=== PATIENT | female | born 2000 | race Caucasian/White ===

== ENCOUNTER 2019-07-22 20:00 | Inpatient (IN) ==
[2019-07-22] MEDS ORDERED: Lidocaine 1% 10 MG/ML - 20 ML VIAL SUBCUT PRN ×2 (20:31→20:50)
[2019-07-22] MEDS ORDERED: LIDOCAINE HCL 2 % 10 ML JELLY URO-JECT TOPICAL PRN ×2 (20:31→20:50)
[2019-07-22] MEDS ORDERED: OXYTOCIN 10 UNIT/1 ML IM PRN ×2 (20:31→20:50)
[2019-07-22] MEDS ORDERED: BUTORPHANOL TARTRATE 2 MG/1 ML VIAL IVP PRN ×2 (20:31→20:50)
[2019-07-22] MEDS ORDERED: fentaNYL Inj 100 MCG/2 ML VIAL IVP PRN (20:31)
[2019-07-22] MEDS ORDERED: TERBUTALINE SULFATE 1 MG/1 ML SDV SUBCUT PRN ×2 (20:31→20:50)
[2019-07-22] MEDS ORDERED: Phenylephrine Inj 50 MCG in Sodium Chloride 0.9% vial 0.5 ML IVP PRN ×2 (20:31→20:50)
[2019-07-22] MEDS ORDERED: ONDANSETRON 4 MG/2 ML VIAL IVP PRN ×2 (20:31→20:50)
[2019-07-22] MEDS ORDERED: CALCIUM CARBONATE 500 MG (TUMS) CHEWABLE TABLET PO PRN ×2 (20:31→20:50)
[2019-07-22] MEDS ORDERED: METHYLERGONOVINE MALEATE 0.2 MG/1 ML VIAL IM PRN ×2 (20:31→20:50)
[2019-07-22] MEDS ORDERED: Carboprost Inj 250 MCG/ML AMP IM PRN ×2 (20:31→20:50)
[2019-07-22] MEDS ORDERED: Naloxone Inj 0.01 MG in Sodium Chloride 0.9% vial 1 ML IVP PRN ×2 (20:31→20:50)
[2019-07-22] MEDS ORDERED: CefOXitin Inj 2 GM in Sodium Chloride 0.9% 100 ML IV PRN ×2 (20:31→20:50)
[2019-07-22] MEDS ORDERED: FAMOTIDINE 20 MG/2 ML VIAL IVP PRN ×4 (20:31→20:50)
[2019-07-22] MEDS ORDERED: LIDOCAINE W/ SODIUM BICARB 0.5 ML SYR SUBD PRN ×2 (20:31→20:50)
[2019-07-22] MEDS ORDERED: Nalbuphine Inj 20 MG/ML Ampule IVP PRN ×2 (20:31→20:50)
[2019-07-22] MEDS ORDERED: NALOXONE 0.4 MG/1 ML VIAL IVP PRN ×2 (20:31→20:50)
[2019-07-22] MEDS ORDERED: MISOPROSTOL 200 MCG TABLET RECTAL PRN ×2 (20:31→20:50)
[2019-07-22] MEDS ORDERED: Metoclopramide Inj 10 MG/2 ML VIAL IV PRN ×2 (20:31→20:50)
[2019-07-22] MEDS ORDERED: CITRIC ACID/SODIUM CITRATE 30 ML CUP PO PRN ×2 (20:31→20:50)
[2019-07-22] MEDS ORDERED: diphenhydrAMINE 50 MG/1 ML VIAL IVP PRN ×2 (20:31→20:50)
[2019-07-22] MEDS ORDERED: Oxytocin 20 Units + LR 20 UNIT/1,000 ML BAG IV SCH ×2 (20:45→21:00)
[2019-07-22] MEDS ORDERED: Lactated Ringers-OB Dept 1,000 ML PRIMARY IV SCH (20:45)
[2019-07-22] MEDS ORDERED: Misoprostol Tab 100 MCG TAB VAGINAL PRN (20:50)
[2019-07-22] MEDS ORDERED: fentaNYL Inj 100 MCG/2 ML VIAL IV PRN (20:50)
[2019-07-22] MEDS ORDERED: Zolpidem Tab 5 MG TAB PO PRN (20:50)
[2019-07-22 20:51] LABS: Hemoglobin [HGB] 12.6 g/dL (12.0-16.0); MEAN CORPUSCULAR VOLUME 87.6 FL (81-99); MEAN PLATELET VOLUME 9.4 FL (7.4-12.2); RED BLOOD COUNT 4.11 10^6/uL (4.20-5.40)
[2019-07-22] MEDS: Lactated Ringers-OB Dept 1,000 ML PRIMARY IV SCH (21:30)
[2019-07-22] MEDS ORDERED: TERBUTALINE SULFATE 1 MG/1 ML SDV ONE (22:45)
[2019-07-22] MEDS ORDERED: TERBUTALINE SULFATE 1 MG/1 ML SDV SUBCUT ONE (22:54)
[2019-07-23] MEDS ORDERED: Oxytocin 20 Units + LR 20 UNIT/1,000 ML BAG IV SCH ×2 (01:30→13:15)
[2019-07-23] MEDS ORDERED: AMPICILLIN 1 GM VIAL ONE (01:39)
[2019-07-23] MEDS ORDERED: Sodium Chloride 0.9% 100 ML IV ONE (01:40)
[2019-07-23] MEDS: Lactated Ringers-OB Dept 1,000 ML PRIMARY IV SCH ×3 (01:47→14:17)
[2019-07-23] MEDS: Ampicillin Inj 1 GM in Sodium Chloride 0.9% 100 ML IV SCH ×2 (01:50→05:29)
[2019-07-23] MEDS ORDERED: OXYTOCIN 10 UNIT/1 ML ONE (12:10)
[2019-07-23] MEDS ORDERED: ONDANSETRON 4 MG/2 ML VIAL IVP PRN (12:53)
[2019-07-23] MEDS ORDERED: HYDROmorphone 2 MG/1 ML IVP PRN (12:53)
[2019-07-23] MEDS ORDERED: fentaNYL Inj 100 MCG/2 ML VIAL IVP PRN (12:53)
[2019-07-23] MEDS ORDERED: LIDOCAINE W/ SODIUM BICARB 0.5 ML SYR SUBD PRN (12:53)
[2019-07-23] MEDS ORDERED: Lactated Ringers 1,000 ML PRIMARY IV SCH (13:00)
[2019-07-23] MEDS ORDERED: diphenhydrAMINE 50 MG/1 ML VIAL IV PRN (13:14)
[2019-07-23] MEDS ORDERED: Naloxone Inj 0.01 MG, Sodium Chloride 0.9% vial 1 ML IVP PRN ×2 (13:14)
[2019-07-23] MEDS ORDERED: LANOLIN HPA 40 GM TUBE TOPICAL PRN (13:14)
[2019-07-23] MEDS ORDERED: CALCIUM CARBONATE 500 MG (TUMS) CHEWABLE TABLET PO PRN (13:14)
[2019-07-23] MEDS ORDERED: DIPH,PERTUSS,TET(ADACEL) VAC/PF 0.5 ML (Tdap) IM ONE (13:14)
[2019-07-23] MEDS ORDERED: Nalbuphine Inj 20 MG/ML Ampule IVP PRN (13:14)
[2019-07-23] MEDS ORDERED: BUTORPHANOL TARTRATE 2 MG/1 ML VIAL IVP PRN (13:14)
[2019-07-23] MEDS ORDERED: diphenhydrAMINE 25 MG CAPSULE PO PRN (13:14)
[2019-07-23] MEDS ORDERED: FAMOTIDINE 20 MG/2 ML VIAL IVP PRN (13:14)
[2019-07-23] MEDS: KETOROLAC 15 MG/1 ML VIAL IVP SCH ×2 (14:00→20:02)
[2019-07-23] MEDS: HYDROmorphone 2 MG/1 ML IV PRN ×4 (15:39→22:52)
[2019-07-23] MEDS: ONDANSETRON 4 MG/2 ML VIAL IVP PRN ×2 (16:16→20:02)
[2019-07-23] MEDS: D5-LR 1,000 ML PRIMARY IV SCH (16:17)
[2019-07-23] MEDS: oxyCODONE IR Tab 5 MG TAB PO PRN (22:51)
[2019-07-24] MEDS: KETOROLAC 15 MG/1 ML VIAL IVP SCH ×3 (02:16→14:02)
[2019-07-24] MEDS: ONDANSETRON 4 MG/2 ML VIAL IVP PRN (02:17)
[2019-07-24 05:40] LABS: Hematocrit [HCT] 28.9 % (37.0-47.0); Hemoglobin [HGB] 9.6 g/dL (12.0-16.0); MEAN CORPUSCULAR HGB CONC 33.2 g/dL (33-37); MEAN CORPUSCULAR VOLUME 90.9 FL (81-99); MEAN PLATELET VOLUME 9.3 FL (7.4-12.2); RED BLOOD COUNT 3.18 10^6/uL (4.20-5.40)
[2019-07-24] MEDS: D5-LR 1,000 ML PRIMARY IV SCH (06:11)
[2019-07-24] MEDS: Prenatal Multivitamin Tab 1 TAB TAB PO SCH (09:00)
[2019-07-24] MEDS: Senna/Docusate Tab 1 TAB TAB PO SCH ×2 (09:00→20:00)
[2019-07-24] MEDS: FERROUS GLUCONATE 324 MG TABLET PO SCH ×3 (09:00→20:00)
[2019-07-24] MEDS ORDERED: MMR VACCINE 12500 UNIT/0.5 ML SUBCUT ONE (09:00)
[2019-07-24] MEDS: oxyCODONE IR Tab 5 MG TAB PO PRN (14:03)
[2019-07-24] MEDS: IBUPROFEN 800 MG TABLET PO SCH (20:00)
[2019-07-25] MEDS: IBUPROFEN 800 MG TABLET PO SCH ×2 (04:35→12:00)
[2019-07-25] MEDS: oxyCODONE IR Tab 5 MG TAB PO PRN (04:39)
[2019-07-25 08:12] VITALS: BP 116/65; RESP 18; TEMP 98.3; O2SAT 97
[2019-07-25] MEDS: FERROUS GLUCONATE 324 MG TABLET PO SCH (09:14)
[2019-07-25] MEDS: Senna/Docusate Tab 1 TAB TAB PO SCH (09:14)
[2019-07-25] MEDS: Prenatal Multivitamin Tab 1 TAB TAB PO SCH (09:14)
== END 2019-07-25 12:40 | disposition home or self-care (01) | DRG 787 ==
LOC: OBIP 20:00
PROVIDERS: ADMIT Family Medicine; ATTEND Family Medicine